=== PATIENT | male | born 1985 | race Caucasian/White ===

== ENCOUNTER 2017-06-17 21:29 | Emergency (ER) | payer OTHER ==
[~2017-06-17] VITALS: Ht 172.7 cm; Wt 75.6 kg
[2017-06-17 21:31] VITALS: BP 155/96
[2017-06-17] MEDS ORDERED: DIPHENHYDRAMINE 25 MG CAPSULE ONE (21:57)
[2017-06-17] MEDS ORDERED: DIPHENHYDRAMINE 25 MG CAPSULE PO ONE (22:00)
== END 2017-06-17 22:07 | disposition home or self-care (01) ==
LOC: ED 22:00
DX: H00.036 Abscess of eyelid left eye, unspecified eyelid (principal)
CPT/HCPCS: 99283; Q0163

== ENCOUNTER 2018-04-04 21:56 | Emergency (ER) | payer OTHER ==
[~2018-04-04] VITALS: Ht 162.6 cm; Wt 77.7 kg
[2018-04-04 21:59] VITALS: BP 147/93
== END 2018-04-04 22:20 | disposition home or self-care (01) ==
LOC: ED 22:00
DX: K02.9 Dental caries, unspecified (principal)
CPT/HCPCS: 99283